=== PATIENT | female | born 1995 | race Caucasian/White ===

== ENCOUNTER 2016-12-18 20:20 | Emergency (ER) | payer SELFPAY ==
[~2016-12-18] VITALS: Ht 162.6 cm; Wt 60.0 kg
[2016-12-18 20:21] VITALS: BP 122/73; PULSE 89; RESP 16; TEMP 98.2; O2SAT 100
--- NOTE | 2016-12-18 20:51 | PD ---
Physical Exam Time Seen by Provider: 20:49 Narrative 21 y/o female with abnormal uterine bleeding. She has had vaginal bleeding for over 2 weeks, now feeling lightheaded and generally weak. vss Seen at triage desk. Awaiting bed placement. Data Data Last Documented VS Vital Signs Date Time Temp Pulse Resp B/P Pulse Ox O2 Delivery O2 Flow Rate FiO2 12/18/16 20:21 98.2 89 16 122/73 100 Room Air [facility] Medical Record Reviewed: Yes Supervised Visit with MAIRA: Gurpreet Mercer December 18, 2016 20:51
--- NOTE | 2016-12-18 23:08 | PD ---
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 Patient states that she has a history of dysmenorrhea, has been on control for approximately 9 years. She states that she's been off control for 1 month, states that it was no longer covered by her insurance and she could not afford $90 a month for the medication. She endorses soaking a menstrual pad every 1-2 hours. She also endorses intermittent lightheadedness. She denies chest pain, palpitations, syncope, shortness of breath, abdominal pain, nausea, vomiting, dysuria or back pain. She does not currently have a primary care provider. She's never been . PFSH Past Medical History ?: Not LMP: CURRENT Social History Tobacco Use: No Allergies-Medications (Allergen,Severity, Reaction): Coded Allergies: No Known Allergies (Unverified , 12/18/16) Reported Meds & Prescriptions Reported Meds & Active Scripts Active No Active Prescriptions or Reported Medications Review of Systems Except as stated in HPI: all other systems reviewed are Neg Physical Exam Narrative GENERAL: Well-nourished, well-developed female in no acute distress. SKIN: Focused skin assessment warm/dry. HEAD: Normocephalic. EYES: No scleral icterus. No injection or drainage. NECK: Supple, trachea midline. No JVD or lymphadenopathy. CARDIOVASCULAR: Regular rate and rhythm without murmurs, gallops, or rubs. 2+ DP and radial pulses bilaterally. RESPIRATORY: Breath sounds clear and equal bilaterally. No accessory muscle use. GASTROINTESTINAL: Abdomen soft, non-tender, nondistended. No suprapubic tenderness. Active bowel sounds. MUSCULOSKELETAL: No cyanosis, or edema. BACK: Nontender without obvious deformity. No CVA tenderness. Data Data Last Documented VS Vital Signs Date Time Temp Pulse Resp B/P Pulse Ox O2 Delivery O2 Flow Rate FiO2 12/18/16 23:16 18 12/18/16 20:21 98.2 89 122/73 100 Room Air Orders Complete Blood Count With Diff (12/18/16 23:44) Urinalysis - C+S If Indicated (12/18/16 23:44) Iv Access Insert/Monitor (12/18/16 23:44) Ed Urine Pregnancytest Poc (12/18/16 23:44) Sodium Chlor 0.9% 1000 Ml Inj (Ns 1000 M (12/18/16 23:45) Labs Laboratory Tests Test 12/18/16 23:53 White Blood Count 8.9 TH/MM3 Red Blood Count 3.18 MIL/MM3 Hemoglobin 8.8 GM/DL Hematocrit 26.2 % Mean Corpuscular Volume 82.3 FL Mean Corpuscular Hemoglobin 27.5 PG Mean Corpuscular Hemoglobin 33.5 % Concent Red Cell Distribution Width 15.2 % Platelet Count 364 TH/MM3 Mean Platelet Volume 8.8 FL Neutrophils (%) (Auto) 58.0 % Lymphocytes (%) (Auto) 31.7 % Monocytes (%) (Auto) 7.8 % Eosinophils (%) (Auto) 2.0 % Basophils (%) (Auto) 0.5 % Neutrophils # (Auto) 5.2 TH/MM3 Lymphocytes # (Auto) 2.8 TH/MM3 Monocytes # (Auto) 0.7 TH/MM3 Eosinophils # (Auto) 0.2 TH/MM3 Basophils # (Auto) 0.0 TH/MM3 CBC Comment DIFF FINAL Differential Comment Urine Color YELLOW Urine Turbidity HAZY Urine pH 8.0 Urine Specific [place] 1.021 Urine Protein 30 mg/dL Urine Glucose (UA) NEG mg/dL Urine Ketones NEG mg/dL Urine Occult Blood LARGE Urine Nitrite NEG Urine Bilirubin NEG Urine Urobilinogen LESS THAN 2.0 MG/DL Urine Leukocyte Esterase TRACE Urine RBC 65 /hpf Urine WBC 6 /hpf Urine Squamous Epithelial 13 /hpf Cells Urine Amorphous Sediment RARE Urine Mucus FEW /lpf Microscopic Urinalysis Comment CULT NOT INDICATED MDM Medical Decision Making Medical Screen Exam Complete: Yes Emergency Medical Condition: Yes Differential Diagnosis dysmenorrhea versus anemia versus UTI versus versus other Narrative Course 21-year-old female presents to the ED for evaluation of approximate 17 day history of heavy menstrual bleeding. Patient states that she has a history of dysmenorrhea, has been on control for approximately 9 years. She states that she's been off control for 1 month, states that it was no longer covered by her insurance and she could not afford $90 a month for the medication. She endorses soaking a menstrual pad every 1-2 hours. She also endorses intermittent lightheadedness. She denies chest pain, palpitations, syncope, shortness of breath, abdominal pain, nausea, vomiting, dysuria or back pain. She does not currently have a primary care provider. She's never been . Vitals reviewed. Physical exam reveals a nontoxic-appearing female in no acute distress. Chest clear to auscultation bilaterally. Abdomen soft, nontender. No suprapubic tenderness. No CVA tenderness. She is administered a liter of normal saline. CBC reveals hemoglobin of 8.8, otherwise unremarkable. No culture indicated of the UA. Bedside urine test negative. Patient does not meet requirements for transfusion or admission. Patient is instructed to follow up with the [facility] tomorrow for further evaluation, return for worsening of symptoms. Patient and mother indicated understanding of instructions and are agreeable to the care plan. Patient is stable and discharged home. Diagnosis Primary Impression: Dysfunctional uterine bleeding Referrals: [facility] [employer] Patient Instructions: Dysfunctional Uterine Bleeding (ED), General Instructions Additional Instructions: Rest, hydrate. Follow-up with the [facility] as discussed. Return to the ED for worsening symptoms or any urgent or emergent medical condition. Scripts No Active Prescriptions or Reported Meds Disposition: 01 DISCHARGE HOME Condition: Stable Erlinda Owen December 18, 2016 23:07
[2016-12-18] MEDS ORDERED: SODIUM CHLOR 0.9% 1000 ML INJ 1,000 ML IV ONE (23:45)
[2016-12-19 00:02] LABS: AUTOMATED NEUTROPHIL # 5.2 TH/MM3 (1.8-7.7); BASOPHIL % 0.5 % (0.0-2.0); EOSINOPHIL # 0.2 TH/MM3 (0-0.4); HEMATOCRIT 26.2 % (35.0-46.0); HEMO FLAGS DIFF FINAL; LYMPH % 31.7 % (9.0-44.0); LYMPHOCYTE # 2.8 TH/MM3 (1.0-4.8); MEAN CELL VOLUME 82.3 FL (80.0-100.0); MEAN CORPUSCULAR HEMOGLOBIN 27.5 PG (27.0-34.0); MEAN CORPUSCULAR HGB CONC 33.5 % (32.0-36.0); MONO % 7.8 % (0.0-8.0); PLATELET COUNT 364 TH/MM3 (150-450); RED BLOOD COUNT 3.18 MIL/MM3 (4.00-5.30); RED CELL DISTRIBUTION WIDTH 15.2 % (11.6-17.2); WHITE BLOOD COUNT 8.9 TH/MM3 (4.0-11.0)
[2016-12-19 00:07] LABS: BLOOD, URINE LARGE (NEG); COMMENT (UR) CULT NOT INDICATED; CULTURE IF INDICATED CULT NOT INDICATED; GLUCOSE,URINE NEG (NEG); KETONE, URINE NEG (NEG); MUCUS URINE FEW /lpf (OCC); NITRITE,URINE NEG (NEG); SQUAMOUS EPITHELIAL CELL URINE 13 /hpf (0-5); URINE COLOR YELLOW (YELLW/STRAW)
[2016-12-19 01:46] VITALS: BP 96/56; PULSE 69; RESP 18; TEMP 98.1; O2SAT 100
== END 2016-12-19 01:38 | disposition home or self-care (01) ==
LOC: NEPD 20:20
DX: N93.8 Other specified abnormal uterine and vaginal bleeding (principal); R42 Dizziness and giddiness
CPT/HCPCS: 81001; 84703; 85025; 99284; J7030

== ENCOUNTER 2017-08-07 01:37 | Emergency (ER) | payer OTHER ==
[~2017-08-07] VITALS: Ht 162.6 cm; Wt 59.0 kg
[2017-08-07 01:38] VITALS: BP 122/83; PULSE 89; RESP 16; TEMP 97.9; O2SAT 99
[2017-08-07] MEDS ORDERED: SODIUM CHLOR 0.9% 1000 ML INJ 1,000 ML IV ONE (02:19)
[2017-08-07] MEDS ORDERED: ONDANSETRON HCL 4 MG/2 ML VIAL IV ONE (02:30)
[2017-08-07 03:04] LABS: AUTOMATED NEUTROPHIL # 5.2 TH/MM3 (1.8-7.7); BASOPHIL # 0.1 TH/MM3 (0-0.2); BASOPHIL % 0.6 % (0.0-2.0); EOSINOPHIL # 0.2 TH/MM3 (0-0.4); EOSINOPHIL % 2.5 % (0.0-4.0); HEMATOCRIT 30.7 % (35.0-46.0); HEMOGLOBIN 9.8 GM/DL (11.6-15.3); LYMPH % 33.3 % (9.0-44.0); LYMPHOCYTE # 3.1 TH/MM3 (1.0-4.8); MEAN CELL VOLUME 75.1 FL (80.0-100.0); MEAN CORPUSCULAR HEMOGLOBIN 23.9 PG (27.0-34.0); MEAN CORPUSCULAR HGB CONC 31.8 % (32.0-36.0); MEAN PLATELET VOLUME 8.5 FL (7.0-11.0); MONO % 8.4 % (0.0-8.0); MONOCYTE # 0.8 TH/MM3 (0-0.9); NEUT % 55.2 % (16.0-70.0); PLATELET COUNT 318 TH/MM3 (150-450); RED BLOOD COUNT 4.09 MIL/MM3 (4.00-5.30); RED CELL DISTRIBUTION WIDTH 17.7 % (11.6-17.2); WHITE BLOOD COUNT 9.5 TH/MM3 (4.0-11.0)
--- NOTE | 2017-08-07 03:05 | PD ---
HPI Chief Complaint: GI Complaint Time Seen by Provider: 02:18 Travel History International Travel<30 days: No Contact w/Intl Traveler<30days: No Traveled to known affect area: No History of Present Illness HPI The patient is a 22 year old female who presents to the [facility] emergency department with a history of 2 separate complaints, the first complaint is that over the last 24 hours she's had nausea, vomiting, and diarrhea. She reports that the vomiting is occurred approximately 7 times in the last 24 hours. She reports that she's had diarrhea approximately one time in the last 24 hours. She denies having any blood in her emesis or blood in her stool. Her second concern today is having intermittent vaginal discharge. She reports that this is been ongoing for the last few months. She has tried using [id number] seven-day yeast treatments without improvement. She reports that she is sexually active, however she has been with the same partner. She does not use condoms. Otherwise on review of systems, she denies having any known recent fevers, cough, congestion, neck pain, chest pain, shortness of breath, abdominal pain, urinary symptoms, or neurologic symptoms. LMP: Beginning of May. She reports having a history of irregular cycles. [facility] Past Medical History Narrative Medical The patient's past medical history is significant for irregular menstrual cycles. Medical History: Denies Significant Hx Hiatal Hernia: Yes ?: Not : 0 Past Surgical History Abdominal Surgery: Yes (HERNIA ) Social History Alcohol Use: Yes Tobacco Use: No Substance Use: No Allergies-Medications (Allergen,Severity, Reaction): Coded Allergies: No Known Allergies (Unverified Adverse Reaction, Unknown, 08/07/17) Reported Meds & Prescriptions Reported Meds & Active Scripts Active Diflucan (Fluconazole) 150 Mg Tab 150 Mg PO ONCE Flagyl (Metronidazole) 500 Mg Tab 500 Mg PO BID Review of Systems Except as stated in HPI: all other systems reviewed are Neg General / Constitutional: No: Fever Eyes: No: Visual changes HENT: No: Headaches Cardiovascular: No: Chest Pain or Discomfort Respiratory: No: Shortness of Breath Gastrointestinal: Positive: Nausea, Vomiting, Diarrhea, Changes in Bowel Habits , No: Abdominal Pain, Hematemesis, Hematochezia, Indigestion, Loss of Appetite Genitourinary: Positive: Pelvic Pain, Discharge, No: Dysuria Musculoskeletal: No: Pain Skin: No Rash Neurologic: No: Weakness Psychiatric: No: Depression Endocrine: No: Polydipsia Hematologic/Lymphatic: No: Easy Bruising Physical Exam Narrative General: The patient is [-]. Head and Neck exam: Head is normocephalic atraumatic. Eyes: EOMI, pupils are equal round and reactive to light. Nose: Midline septum with pink mucous membranes Mouth: Dentition unremarkable. Moist mucus membranes. Posterior oropharynx is not erythematous. No tonsillar hypertrophy. Uvula midline. Airway patent. Neck: No palpable lymphadenopathy. No nuchal rigidity. No thyromegaly. Cardiovascular: Regular rate and rhythm without murmurs, gallops, or rubs. No pulse deficit to the extremities. Lungs: Clear to auscultation bilaterally. No wheezes, rhonchi, or rales. Abdomen: Soft, without tenderness to palpation in all 4 quadrants of the abdomen. No guarding, rebound, or rigidity. Normal bowel sounds are audible. No tenderness on palpation of McBurney's point. Extremities: No clubbing, cyanosis, or edema. 2+ pulses in all 4 extremities. Back: No costovertebral angle tenderness to palpation. Neurologic Exam: Grossly nonfocal. Skin Exam: No rash noted. Intact skin that is warm and dry. Gynecologic exam: The patient was placed in the dorsal lithotomy position. Her external genitalia were examined. She had no evidence of rash or lesions. The speculum was placed into her vagina and the cervix was identified. She had a thick clumpy white discharge. No cervical friability. On Bimanual exam: she has no cervical motion tenderness. No adnexal tenderness or prominence noted on palpation. No uterine tenderness or enlargement noted on palpation. Data Data Last Documented VS Vital Signs Date Time Temp Pulse Resp B/P (MAP) Pulse Ox O2 Delivery O2 Flow Rate FiO2 08/07/17 05:46 08/07/17 05:00 74 18 100 Room Air 08/07/17 01:38 97.9 Orders Orders Complete Blood Count With Diff (08/07/17 02:19) Comprehensive Metabolic Panel (08/07/17 02:19) Gc And Chlamydia Pcr (08/07/17 02:19) Wet Prep Profile (08/07/17 02:19) Urinalysis - C+S If Indicated (08/07/17 02:19) Iv Access Insert/Monitor (08/07/17 02:19) Ecg Monitoring (08/07/17 02:19) Sodium Chlor 0.9% 1000 Ml Inj (Ns 1000 M (08/07/17 02:19) Ed Urine Pregnancytest Poc (08/07/17 02:19) Lipase (08/07/17 02:19) Ondansetron Inj (Zofran Inj) (08/07/17 02:30) Labs Laboratory Tests Test 08/07/17 02:47 08/07/17 03:10 White Blood Count 9.5 TH/MM3 Red Blood Count 4.09 MIL/MM3 Hemoglobin 9.8 GM/DL Hematocrit 30.7 % Mean Corpuscular Volume 75.1 FL Mean Corpuscular Hemoglobin 23.9 PG Mean Corpuscular Hemoglobin Concent 31.8 % Red Cell Distribution Width 17.7 % Platelet Count 318 TH/MM3 Mean Platelet Volume 8.5 FL Neutrophils (%) (Auto) 55.2 % Lymphocytes (%) (Auto) 33.3 % Monocytes (%) (Auto) 8.4 % Eosinophils (%) (Auto) 2.5 % Basophils (%) (Auto) 0.6 % Neutrophils # (Auto) 5.2 TH/MM3 Lymphocytes # (Auto) 3.1 TH/MM3 Monocytes # (Auto) 0.8 TH/MM3 Eosinophils # (Auto) 0.2 TH/MM3 Basophils # (Auto) 0.1 TH/MM3 CBC Comment DIFF FINAL Differential Comment Urine Color YELLOW Urine Turbidity CLOUDY Urine pH 8.0 Urine Specific [place] 1.023 Urine Protein TRACE mg/dL Urine Glucose (UA) NEG mg/dL Urine Ketones TRACE mg/dL Urine Occult Blood NEG Urine Nitrite NEG Urine Bilirubin NEG Urine Urobilinogen 2.0 MG/DL Urine Leukocyte Esterase MOD Urine RBC 2 /hpf Urine WBC 7 /hpf Urine Squamous Epithelial Cells 20 /hpf Urine Transitional Epithelial Cells <1 /hpf Urine Amorphous Sediment RARE Urine Bacteria RARE /hpf Urine Hyaline Casts 2 /lpf Urine Mucus MANY /lpf Microscopic Urinalysis Comment CULT NOT INDICATED Blood Urea Nitrogen 7 MG/DL Creatinine 0.79 MG/DL Random Glucose 95 MG/DL Total Protein 7.5 GM/DL Albumin 4.0 GM/DL Calcium Level 8.8 MG/DL Alkaline Phosphatase 51 U/L Aspartate Amino Transf (AST/SGOT) 9 U/L Alanine Aminotransferase (ALT/SGPT) 19 U/L Total Bilirubin 0.3 MG/DL Sodium Level 140 MEQ/L Potassium Level 3.3 MEQ/L Chloride Level 105 MEQ/L Carbon Dioxide Level 28.0 MEQ/L Anion Gap 7 MEQ/L Estimat Glomerular Filtration Rate 92 ML/MIN Lipase 111 U/L Clue Cells (Wet Prep) PRESENT Vaginal Trichomonas (Wet Prep) NONE SEEN Vaginal Yeast (Wet Prep) NONE SEEN Chlamydia trachomatis DNA (PCR) NOT DETECTED Neisseria gonorrhoeae DNA (PCR) NOT DETECTED MDM Medical Decision Making Medical Screen Exam Complete: Yes Emergency Medical Condition: Yes Medical Record Reviewed: Yes Differential Diagnosis #1 regarding vaginal discharge yeast infection, versus trichomoniasis, versus gonorrhea, versus chlamydia, versus bacterial vaginosis #2 regarding nausea, vomiting, diarrhea: Viral versus bacterial gastroenteritis Narrative Course During the course of the patients emergency department visit, the patients history, examination, and differential diagnosis were reviewed with the patient. The patient was placed on a silk soaker with oximetry and frequent blood pressure monitoring. The patient had IV access obtained and blood work sent for analysis. A [id number] test is negative. The patient was initially provided normal saline 1 L IV fluid bolus, Zofran 4 mg IV. The patients laboratory studies were reviewed and remarkable for a white count of 9.5, hemoglobin 9.8, platelets 318 with 8.4 monocytes, her wet prep is positive for clue cells. CMP is unremarkable. The patient will be discharged home with a prescription for Flagyl for bacterial vaginosis and Diflucan. The patient is resting comfortably and feels better, is alert and in no distress. The patients results and examination findings were discussed with the patient. The repeat examination is unremarkable and benign. The history, exam, diagnostic testing, and current condition do not suggest any significant pathology to warrant further testing, continued ED treatment, admission, or surgical evaluation at this point. The vital signs have been stable. The patient does not have uncontrollable pain, intractable vomiting, or other significant symptoms. The patient's condition is stable and appropriate for discharge. The patient will pursue further outpatient evaluation with a primary care physician or other designated or consulting physician as indicated in the discharge instructions. The patient expressed understanding and was agreeable with this plan. Diagnosis Primary Impression: Dysfunctional uterine bleeding Additional Impression: Bacterial vaginosis Referrals: Rosalind Haile MD 1 week [facility] 1 week Patient Instructions: Bacterial Vaginosis (ED), Dysfunctional Uterine Bleeding (ED), General Instructions Med/Other Pt SpecificInfo: Prescription(s) given Scripts Fluconazole (Diflucan) 150 Mg Tab 150 MG PO ONCE for Infection, #1 TAB 0 Refills Prov: Janeth Mario MD 08/07/17 Metronidazole (Flagyl) 500 Mg Tab 500 MG PO BID for Infection, #14 TAB 0 Refills Prov: Janeth Mario MD 08/07/17 Disposition: 01 DISCHARGE HOME Condition: Stable Janeth Mario MD Aug 07, 2017 03:05
[2017-08-07 03:31] LABS: ALT (GPT) 19 U/L (10-53); AST (GOT) 9 U/L (15-37); BLOOD UREA NITROGEN 7 MG/DL (7-18); CALCIUM 8.8 MG/DL (8.5-10.1); CHLORIDE 105 MEQ/L (98-107); CREATININE 0.79 MG/DL (0.50-1.00); GLOMERULAR FILTRATION RATE 92 ML/MIN (>89); GLUCOSE,RANDOM 95 MG/DL (74-106); LIPASE 111 U/L (73-393); SODIUM (NA) 140 MEQ/L (136-145)
[2017-08-07 03:34] LABS: ALKALINE PHOSPHATASE 51 U/L (45-117); TOTAL BILIRUBIN ADULT 0.3 MG/DL (0.2-1.0); TOTAL PROTEIN 7.5 GM/DL (6.4-8.2)
[2017-08-07 03:41] LABS: AMORPHOUS SEDIMENT, URINE RARE; BACTERIA, URINE RARE /hpf; BILIRUBIN, URINE NEG (NEG); BLOOD, URINE NEG (NEG); GLUCOSE,URINE NEG (NEG); HYALINE CAST, URINE 2 /lpf (RARE); KETONE, URINE TRACE mg/dL (NEG); MUCUS URINE MANY /lpf (OCC); NITRITE,URINE NEG (NEG); SQUAMOUS EPITHELIAL CELL URINE 20 /hpf (0-5); TRANSITIONAL EPI CELLS, URINE <1 /hpf; URINE COLOR YELLOW (YELLW/STRAW); URINE LEUKOCYTE ESTERASE MOD (NEG)
[2017-08-07 05:00] VITALS: BP 119/71; PULSE 74; RESP 18; O2SAT 100
[2017-08-07] MEDS ORDERED: METR-1 PO (05:24)
[2017-08-07] MEDS ORDERED: DIFL150T PO (05:24)
== END 2017-08-07 05:47 | disposition home or self-care (01) ==
LOC: NEPC 01:37
DX: N93.8 Other specified abnormal uterine and vaginal bleeding (principal); B96.89 Other specified bacterial agents as the cause of diseases classified elsewhere; N76.0 Acute vaginitis; R11.2 Nausea with vomiting, unspecified; R19.7 Diarrhea, unspecified
CPT/HCPCS: 80053; 81001; 83690; 84703; 85025; 87210; 87491; 87591; 96361; 96374; 99284; J2405; J7030

== ENCOUNTER 2017-11-10 13:26 | Inpatient (IN) | payer SELFPAY ==
[~2017-11-10] VITALS: Ht 165.1 cm; Wt 52.0 kg
[~2017-11-10 13:26] MED LIST: DIFL150T PO; METR-1 PO
[2017-11-10 13:32] VITALS: BP 110/68; PULSE 79; RESP 18; TEMP 98.1; O2SAT 99
[2017-11-10] MEDS ORDERED: SODIUM CHLOR 0.9% 1000 ML INJ 1,000 ML IV ONE (13:37)
--- NOTE | 2017-11-10 13:58 | PD ---
HPI Chief Complaint: Seizure Time Seen by Provider: 13:36 Travel History International Travel<30 days: No Contact w/Intl Traveler<30days: No Traveled to known affect area: No History of Present Illness HPI 22-year-old female presents emergency department via [facility] after seizure that occurred just prior to arrival. 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 Unfortunately, unable to characterize this seizure activity, she does not know how long she was out. According to [facility], she was A+ O 1 upon initial evaluation. Patient became A+O 3 shortly after their arrival. EKG shows sinus arrhythmia with short pauses. Currently she complains about an 8/10 headache with associated nausea. Her headaches located in the frontal aspect of her forehead. Denies tongue biting or urinary incontinence. Patient does not remember the events of the actual seizure. Patient denies fever, chills, chest pain, shortness breath, abdominal pain, vomiting, diarrhea. She denies any preceding infections. States she last smoked marijuana 2 weeks ago. Denies any other illicit drug use. Says she does have a history of anemia and has not followed up with this. Denies chronic medical issues medication use. Since her last menstrual period was 2 weeks ago and lasted approximately 1 week with is unusual for her. States usually usually bleeds for entire month. Prior to this menstrual cycle she last had a period in June 2017. [facility] Past Medical History Hiatal Hernia: Yes ?: Not : 0 Past Surgical History Abdominal Surgery: Yes (HERNIA ) Social History Alcohol Use: Yes Tobacco Use: Yes (1 PACK A DAY ) Substance Use: No Allergies-Medications (Allergen,Severity, Reaction): Coded Allergies: No Known Allergies (Unverified Adverse Reaction, Unknown, 08/07/17) Reported Meds & Prescriptions Reported Meds & Active Scripts Active Review of Systems Except as stated in HPI: all other systems reviewed are Neg Physical Exam Narrative GENERAL: Well-developed, well-nourished in no apparent distress, anxious SKIN: Focused skin assessment warm/dry. HEAD: Atraumatic. Normocephalic. Skin intact EYES: Pupils equal and round. No scleral icterus. No injection or drainage. ENT: No nasal bleeding or discharge. Mucous membranes pink and moist. NECK: Trachea midline. No JVD. Mild TTP to upper cervical region without step- offs or deformities CARDIOVASCULAR: Regular rate and rhythm. No murmur appreciated. RESPIRATORY: No accessory muscle use. Clear to auscultation. Breath sounds equal bilaterally. GASTROINTESTINAL: Abdomen soft, non-tender, nondistended. No CVA tenderness MUSCULOSKELETAL: No obvious deformities. No clubbing. No cyanosis. No edema. NEUROLOGICAL: Awake and alert. Cranial nerves II through XII intact. Motor and sensory grossly within normal limits. Five out of 5 muscle strength in all muscle groups. Normal speech. PSYCHIATRIC: Appropriate mood and affect; insight and judgment normal. Data Data Last Documented VS Vital Signs Date Time Temp Pulse Resp B/P (MAP) Pulse Ox O2 Delivery O2 Flow Rate FiO2 11/10/17 16:13 122/78 (93) 127/78 (94) 11/10/17 13:32 98.1 79 18 99 Orders Orders Complete Blood Count With Diff (11/10/17 13:37) Alcohol (Ethanol) (11/10/17 13:37) Drug Screen, Random Urine (11/10/17 13:37) Electrocardiogram (11/10/17 ) Blood Glucose (11/10/17 13:37) Ecg Monitoring (11/10/17 13:37) Iv Access Insert/Monitor (11/10/17 13:37) Oximetry (11/10/17 13:37) Comprehensive Metabolic Panel (11/10/17 13:37) Sodium Chlor 0.9% 1000 Ml Inj (Ns 1000 M (11/10/17 13:37) Urinalysis - C+S If Indicated (11/10/17 13:37) Lipase (11/10/17 13:37) Ct Brain W/O Iv Contrast(Rout) (11/10/17 ) Ct Cerv Spine W/O Contrast (11/10/17 ) Ondansetron Inj (Zofran Inj) (11/10/17 14:00) Acetaminophen (Tylenol) (11/10/17 14:00) Chest, Single Ap (11/10/17 ) Ed Urine Pregnancytest Poc (11/10/17 13:55) Orthostatic Vital Signs (11/10/17 13:57) Ketorolac Inj (Toradol Inj) (11/10/17 18:00) Admit Order (Ed Use Only) (11/10/17 18:05) Labs Laboratory Tests Test 11/10/17 14:08 11/10/17 15:43 White Blood Count 5.6 TH/MM3 Red Blood Count 4.14 MIL/MM3 Hemoglobin 11.6 GM/DL Hematocrit 32.9 % Mean Corpuscular Volume 79.6 FL Mean Corpuscular Hemoglobin 28.0 PG Mean Corpuscular Hemoglobin Concent 35.2 % Red Cell Distribution Width 20.6 % Platelet Count 274 TH/MM3 Mean Platelet Volume 9.4 FL Neutrophils (%) (Auto) 66.2 % Lymphocytes (%) (Auto) 27.7 % Monocytes (%) (Auto) 5.2 % Eosinophils (%) (Auto) 0.4 % Basophils (%) (Auto) 0.5 % Neutrophils # (Auto) 3.7 TH/MM3 Lymphocytes # (Auto) 1.6 TH/MM3 Monocytes # (Auto) 0.3 TH/MM3 Eosinophils # (Auto) 0.0 TH/MM3 Basophils # (Auto) 0.0 TH/MM3 CBC Comment DIFF FINAL Differential Comment Blood Urea Nitrogen 6 MG/DL Creatinine 0.78 MG/DL Random Glucose 97 MG/DL Total Protein 7.9 GM/DL Albumin 4.1 GM/DL Calcium Level 8.9 MG/DL Alkaline Phosphatase 39 U/L Aspartate Amino Transf (AST/SGOT) 12 U/L Alanine Aminotransferase (ALT/SGPT) 19 U/L Total Bilirubin 0.4 MG/DL Sodium Level 140 MEQ/L Potassium Level 3.7 MEQ/L Chloride Level 106 MEQ/L Carbon Dioxide Level 24.6 MEQ/L Anion Gap 9 MEQ/L Estimat Glomerular Filtration Rate 93 ML/MIN Magnesium Level 1.9 MG/DL Lipase 121 U/L Thyroid Stimulating Hormone 3rd Gen 0.755 uIU/ML Ethyl Alcohol Level LESS THAN 3 MG/DL Urine Color LIGHT-YELLOW Urine Turbidity CLEAR Urine pH 6.5 Urine Specific [place] 1.004 Urine Protein NEG mg/dL Urine Glucose (UA) NEG mg/dL Urine Ketones 10 mg/dL Urine Occult Blood NEG Urine Nitrite NEG Urine Bilirubin NEG Urine Urobilinogen LESS THAN 2.0 MG/DL Urine Leukocyte Esterase NEG Urine WBC LESS THAN 1 /hpf Urine Squamous Epithelial Cells 2 /hpf Microscopic Urinalysis Comment CULT NOT INDICATED Urine Opiates Screen NEG Urine Barbiturates Screen NEG Urine Amphetamines Screen NEG Urine Benzodiazepines Screen NEG Urine Cocaine Screen NEG Urine Cannabinoids Screen POS MDM Medical Decision Making Medical Screen Exam Complete: Yes Emergency Medical Condition: Yes Differential Diagnosis New onset seizure disorder, syncopal episode, intoxication, substance abuse Narrative Course 22-year-old female presents emerged from [facility] after an apparent seizure that occurred just prior to arrival. [facility] states that she had a witnessed seizure just prior to arrival. EKG shows sinus bradycardia at rate 57 without STEMI changes. Sinus arrhythmia. CT head and neck without acute process. Labs are stable. Orthostatics negative [id number] negative. Patient given Tylenol and Toradol for her headache. 1 L normal saline IV fluids administered. Patient will be admitted for new onset seizure evaluation. I spoke with the resident, Dr. Beck who accepted the patient. UDS pending as of admission. Diagnosis Primary Impression: Seizure Admitting Information Admitting Physician Requests: Admit Scripts Ibuprofen (Ibuprofen) 600 Mg Tab 600 MG PO Q6H Y for pain 1-10, #20 TAB Prov: Breanna Beck MD 11/12/17 Condition: Stable Zee Bautista Nov 10, 2017 13:58
[2017-11-10] MEDS ORDERED: ONDANSETRON HCL 4 MG/2 ML VIAL IV PUSH ONE (14:00)
[2017-11-10] MEDS ORDERED: ACETAMINOPHEN 500 MG CPLT PO ONE (14:00)
[2017-11-10 15:01] LABS: AUTOMATED NEUTROPHIL # 3.7 TH/MM3 (1.8-7.7); BASOPHIL % 0.5 % (0.0-2.0); EOSINOPHIL % 0.4 % (0.0-4.0); HEMATOCRIT 32.9 % (35.0-46.0); HEMOGLOBIN 11.6 GM/DL (11.6-15.3); LYMPH % 27.7 % (9.0-44.0); LYMPHOCYTE # 1.6 TH/MM3 (1.0-4.8); MEAN CELL VOLUME 79.6 FL (80.0-100.0); MEAN CORPUSCULAR HGB CONC 35.2 % (32.0-36.0); MEAN PLATELET VOLUME 9.4 FL (7.0-11.0); MONO % 5.2 % (0.0-8.0); MONOCYTE # 0.3 TH/MM3 (0-0.9); NEUT % 66.2 % (16.0-70.0); PLATELET COUNT 274 TH/MM3 (150-450); RED BLOOD COUNT 4.14 MIL/MM3 (4.00-5.30); RED CELL DISTRIBUTION WIDTH 20.6 % (11.6-17.2); WHITE BLOOD COUNT 5.6 TH/MM3 (4.0-11.0)
[2017-11-10 15:25] LABS: ALBUMIN 4.1 GM/DL (3.4-5.0); ALT (GPT) 19 U/L (10-53); AST (GOT) 12 U/L (15-37); BICARBONATE 24.6 MEQ/L (21.0-32.0); BLOOD UREA NITROGEN 6 MG/DL (7-18); CALCIUM 8.9 MG/DL (8.5-10.1); CHLORIDE 106 MEQ/L (98-107); CREATININE 0.78 MG/DL (0.50-1.00); GLOMERULAR FILTRATION RATE 93 ML/MIN (>89); GLUCOSE,RANDOM 97 MG/DL (74-106); SODIUM (NA) 140 MEQ/L (136-145)
[2017-11-10 15:27] LABS: ALKALINE PHOSPHATASE 39 U/L (45-117); TOTAL BILIRUBIN ADULT 0.4 MG/DL (0.2-1.0); TOTAL PROTEIN 7.9 GM/DL (6.4-8.2)
--- NOTE | 2017-11-10 15:47 | RADRPT ---
EXAM DATE/TIME: 11/10/2017 14:52 [place] COMPARISON: No previous studies available for comparison. INDICATIONS : Syncope after seizure. MEDICAL HISTORY : None. SURGICAL HISTORY : None. ENCOUNTER: Initial ACUITY: 1 day PAIN SCORE: 0/10 LOCATION: Bilateral chest FINDINGS: A single view of the chest demonstrates the lungs to be symmetrically aerated without evidence of mas s, infiltrate or effusion. The cardiomediastinal contours are unremarkable. Osseous structures are intact. CONCLUSION: No acute disease. Peter Vu MD on November 10, 2017 at 15:44 Board Certified Radiologist. This report was verified electronically.
[2017-11-10 16:13] VITALS: BP_SYST 122; BP_SYST 127; BP_DIAS 78
[2017-11-10 16:24] LABS: BILIRUBIN, URINE NEG (NEG); BLOOD, URINE NEG (NEG); GLUCOSE,URINE NEG (NEG); KETONE, URINE 10 mg/dL (NEG); NITRITE,URINE NEG (NEG); PH, URINE 6.5 (5.0-8.5); SQUAMOUS EPITHELIAL CELL URINE 2 /hpf (0-5); URINE COLOR LIGHT-YELLOW (YELLW/STRAW); URINE LEUKOCYTE ESTERASE NEG (NEG)
--- NOTE | 2017-11-10 17:22 | RADRPT ---
EXAM DATE/TIME: 11/10/2017 15:45 [facility] COMPARISON: No previous studies available for comparison. INDICATIONS : Witnessed seizure. RADIATION DOSE: 28.02 CTDIvol (mGy) MEDICAL HISTORY : None SURGICAL HISTORY : None. ENCOUNTER: Initial ACUITY: 1 day PAIN SCALE: 5/10 LOCATION: Bilateral distal TECHNIQUE: Multiple contiguous axial images were obtained of the head. Using automated exposure control and adj ustment of the mA and/or kV according to patient size, radiation dose was kept as low as reasonably a chievable to obtain optimal diagnostic quality images. DICOM format image data is available electro nically for review and comparison. FINDINGS: CEREBRUM: The ventricles are normal for age. No evidence of midline shift, mass lesion, hemorrhage or acute in farction. No extra-axial fluid collections are seen. POSTERIOR FOSSA: The cerebellum and brainstem are intact. The 4th ventricle is midline. The cerebellopontine angle i s unremarkable. EXTRACRANIAL: The visualized portion of the orbits is intact. SKULL: The calvaria is intact. No evidence of skull fracture. CONCLUSION: Normal examination. Peter Vu MD on November 10, 2017 at 17:19 Board Certified Radiologist. This report was verified electronically.
--- NOTE | 2017-11-10 17:23 | RADRPT ---
EXAM DATE/TIME: 11/10/2017 15:45 [facility] COMPARISON: No previous studies available for comparison. INDICATIONS : Witnessed seizure. RADIATION DOSE: 8.59 CTDIvol (mGy) MEDICAL HISTORY : None SURGICAL HISTORY : None. ENCOUNTER: Initial ACUITY: 1 day PAIN SCALE: 3/10 LOCATION: Bilateral neck TECHNIQUE: Volumetric scanning of the cervical spine was performed. Multiplanar reconstructions in the sagittal, coronal and oblique axial planes were performed. Using automated exposure control and adjustment o f the mA and/or kV according to patient size, radiation dose was kept as low as reasonably achievable to obtain optimal diagnostic quality images. DICOM format image data is available electronically f or review and comparison. FINDINGS: VERTEBRAE: Normal vertebral body height. ALIGNMENT: No evidence of subluxation. There is straightening to minimal reversal of the normal C-spine lordosis . C2-C3: The bony spinal canal is normal in size. No evidence of disc bulge or herniation. The neural forami na are bilaterally patent. C3-C4: The bony spinal canal is normal in size. No evidence of disc bulge or herniation. The neural forami na are bilaterally patent. C4-C5: The bony spinal canal is normal in size. No evidence of disc bulge or herniation. The neural forami na are bilaterally patent. C5-C6: The bony spinal canal is normal in size. No evidence of disc bulge or herniation. The neural forami na are bilaterally patent. C6-C7: The bony spinal canal is normal in size. No evidence of disc bulge or herniation. The neural forami na are bilaterally patent. C7-T1: The bony spinal canal is normal in size. No evidence of disc bulge or herniation. The neural forami na are bilaterally patent. CONCLUSION: No acute bony injury seen. Peter Vu MD on November 10, 2017 at 17:19 Board Certified Radiologist. This report was verified electronically.
[2017-11-10] MEDS ORDERED: KETOROLAC TROMETHAMINE 60 MG/2 ML (IM) VIAL IM ONE (18:00)
[2017-11-10] MEDS ORDERED: SODIUM CHLORIDE 0.9% FLUSH 10 ML FLUSH IV FLUSH PRN (18:15)
[2017-11-10] MEDS ORDERED: ONDANSETRON HCL 4 MG/2 ML VIAL IV PUSH PRN (18:15)
[2017-11-10] MEDS ORDERED: LORazepam 2 MG/ML VIAL IV PUSH PRN (18:15)
--- NOTE | 2017-11-10 18:23 | HHI.HP ---
HPI Service Family Medicine Primary Care Physician No Primary Care Physician Admission Diagnosis new onset siezure Diagnoses: International Travel<30 Days: No Contact w/Intl Traveler<30days: No Known Affected Area: No History of Present Illness 22 yo F presents emergency department via [facility] after seizure that occurred just prior to arrival. 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 She states she woke up this morning with headache, nausea, "not feeling right." Patient does not remember the events of the actual seizure and is unable to characterize this seizure activity, she does not know how long she was out. She was told by coworkers that her eyes rolled back in her head and she had full body jerking. According to [facility], she was A+O 1 upon initial evaluation. Patient became A+O 3 shortly after their arrival. Initially she complained about an 8/10 headache with associated nausea, but this improved with Toradol, Zofran and Tylenol in ED. Her headaches located in the frontal aspect of her forehead. Denies urinary incontinence. Patient denies current fever, chills, chest pain, shortness breath, abdominal pain, vomiting, diarrhea. She denies any preceding infections that she knows of. States she last smoked marijuana 2 weeks ago. Denies any other illicit drug use. Says she does have a history of anemia and has not followed up with this. Denies chronic medical issues medication use. Since her last menstrual period was 2 weeks ago and lasted approximately 1 week with is unusual for her. States usually usually bleeds for entire month. Prior to this menstrual cycle she last had a period in June 2017. Review of Systems Constitutional: DENIES: Fever, Chills, Dizziness Endocrine: COMPLAINS OF: Abnorml menstrual pattern Eyes: DENIES: Blurred vision, Double Vision Ears, nose, mouth, throat: DENIES: Throat pain, Running Nose Respiratory: DENIES: Cough, Shortness of breath Cardiovascular: DENIES: Chest pain, Palpitations Gastrointestinal: DENIES: Abdominal pain, Black stools, Bloody stools, Constipation, Diarrhea, Nausea, Vomiting Genitourinary: COMPLAINS OF: Dysuria (2 days ago happened once), DENIES: Hematuria Musculoskeletal: DENIES: Joint Swelling Integumentary: DENIES: Rash Hematologic/lymphatic: DENIES: Lymphadenopathy Neurologic: COMPLAINS OF: Headache (States she hit her head when she had the seizure), Seizures, DENIES: Localized weakness, Speech Problems Psychiatric: COMPLAINS OF: Confusion (immediately after the seizuer) Past Family Social History Past Medical History Anemia Past Surgical History hernia repair in infancy Allergies: Coded Allergies: No Known Allergies (Unverified Adverse Reaction, Unknown, 08/07/17) Family History Seizure disorder in maternal cousin Social History Lives with boyfriend ([facility] [phone]) Mom is tigist Arellano ([phone]) Uncle is Swapnil Arellano ([phone]) Worked at a Currently Rarely alcohol 2 cigs per day Occasional marijuana use - 2 weeks ago was last use Physical Exam Vital Signs Vital Signs Date Time Temp Pulse Resp B/P (MAP) Pulse Ox O2 Delivery O2 Flow Rate FiO2 11/10/17 16:13 122/78 (93) 127/78 (94) 11/10/17 13:32 98.1 79 18 110/68 (82) 99 Physical Exam GENERAL: This is a well-nourished, well-developed patient, in no apparent distress. Conversant and answering questions appropriately during interview. SKIN: No rashes, ecchymoses or lesions. Cool and dry. HEAD: Atraumatic. Normocephalic. No temporal or scalp tenderness. EYES: Pupils equal round and reactive. Extraocular motions intact. No scleral icterus. No injection or drainage. ENT: Nose without bleeding, purulent drainage or septal hematoma. Throat without erythema, tonsillar hypertrophy or exudate. Uvula midline. Airway patent. 1 cm shallow, non-bleeding wound on R side of tongue. Multiple shallow, non-bleeding wounds on inside of lower lip NECK: Trachea midline. No JVD or lymphadenopathy. Supple, nontender, no meningeal signs. CARDIOVASCULAR: Regular rate and rhythm without murmurs, gallops, or rubs. RESPIRATORY: Clear to auscultation. Breath sounds equal bilaterally. No wheezes , rales, or rhonchi. GASTROINTESTINAL: Abdomen soft, non-tender, nondistended. No hepato-splenomegaly , or palpable masses. No guarding. MUSCULOSKELETAL: Extremities without clubbing, cyanosis, or edema. No joint tenderness, effusion, or edema noted. No calf tenderness. Negative Homans sign bilaterally. NEUROLOGICAL: Awake and alert. Cranial nerves II through XII intact. Motor and sensory grossly within normal limits. Five out of 5 muscle strength in all muscle groups. Normal speech. Laboratory Laboratory Tests Test 11/10/17 14:08 11/10/17 15:43 White Blood Count 5.6 Red Blood Count 4.14 Hemoglobin 11.6 Hematocrit 32.9 Mean Corpuscular Volume 79.6 Mean Corpuscular Hemoglobin 28.0 Mean Corpuscular Hemoglobin Concent 35.2 Red Cell Distribution Width 20.6 Platelet Count 274 Mean Platelet Volume 9.4 Neutrophils (%) (Auto) 66.2 Lymphocytes (%) (Auto) 27.7 Monocytes (%) (Auto) 5.2 Eosinophils (%) (Auto) 0.4 Basophils (%) (Auto) 0.5 Neutrophils # (Auto) 3.7 Lymphocytes # (Auto) 1.6 Monocytes # (Auto) 0.3 Eosinophils # (Auto) 0.0 Basophils # (Auto) 0.0 CBC Comment DIFF FINAL Differential Comment Blood Urea Nitrogen 6 Creatinine 0.78 Random Glucose 97 Total Protein 7.9 Albumin 4.1 Calcium Level 8.9 Alkaline Phosphatase 39 Aspartate Amino Transf (AST/SGOT) 12 Alanine Aminotransferase (ALT/SGPT) 19 Total Bilirubin 0.4 Sodium Level 140 Potassium Level 3.7 Chloride Level 106 Carbon Dioxide Level 24.6 Anion Gap 9 Estimat Glomerular Filtration Rate 93 Lipase 121 Ethyl Alcohol Level LESS THAN 3 Urine Color LIGHT-YELLOW Urine Turbidity CLEAR Urine pH 6.5 Urine Specific [place] 1.004 Urine Protein NEG Urine Glucose (UA) NEG Urine Ketones 10 Urine Occult Blood NEG Urine Nitrite NEG Urine Bilirubin NEG Urine Urobilinogen LESS THAN 2.0 Urine Leukocyte Esterase NEG Urine WBC LESS THAN 1 Urine Squamous Epithelial Cells 2 Microscopic Urinalysis Comment CULT NOT INDICATED Result Diagram: 11/10/17 1408 11/10/17 1408 Caprini VTE Risk Assessment Caprini VTE Risk Assessment: No/Low Risk (score <= 1) Caprini Risk Assessment Model Point Value = 1 Point Value = 2 Point Value = 3 Point Value = 5 Age 41-60 Minor surgery BMI > 25 kg/m2 Swollen legs Varicose veins or History of unexplained or recurrent spontaneous Oral contraceptives or hormone replacement Sepsis (< 1 month) Serious lung disease, including pneumonia (< 1 month) Abnormal pulmonary function Acute myocardial infarction Congestive heart failure (< 1 month) History of inflammatory bowel disease Medical patient at bed rest Age 61-74 Arthroscopic surgery Major open surgery (> 45 min) Laparoscopic surgery (> 45 min) Malignancy Confined to bed (> 72 hours) Immobilizing plaster cast Central venous access Age >= 75 History of VTE Family history of VTE Factor V Leiden Prothrombin [id number] Lupus anticoagulant Anticardiolipin antibodies Elevated serum homocysteine Heparin-induced thrombocytopenia Other congenital or acquired thrombophilia Stroke (< 1 month) Elective arthroplasty Hip, pelvis, or leg fracture Acute spinal cord injury (< 1 month) Prophylaxis Regimen Total Risk Factor Score Risk Level Prophylaxis Regimen 0-1 Low Early ambulation 2 Moderate Order ONE of the following: *Sequential Compression Device (SCD) *Heparin 5000 units SQ BID 3-4 Higher Order ONE of the following medications: *Heparin 5000 units SQ TID *Enoxaparin/Lovenox 40 mg SQ daily (WT < 150 kg, CrCl > 30 mL/min) *Enoxaparin/Lovenox 30 mg SQ daily (WT < 150 kg, CrCl > 10-29 mL/min) *Enoxaparin/Lovenox 30 mg SQ BID (WT < 150 kg, CrCl > 30 mL/min) AND/OR *Sequential Compression Device (SCD) 5 or more Highest Order ONE of the following medications: *Heparin 5000 units SQ TID (Preferred with Epidurals) *Enoxaparin/Lovenox 40 mg SQ daily (WT < 150 kg, CrCl > 30 mL/min) *Enoxaparin/Lovenox 30 mg SQ daily (WT < 150 kg, CrCl > 10-29 mL/min) *Enoxaparin/Lovenox 30 mg SQ BID (WT < 150 kg, CrCl > 30 mL/min) AND *Sequential Compression Device (SCD) Assessment and Plan Assessment and Plan 22 yo F with PMH of anemia presented to ED following first time seizure. She did hit her head after a fall when the seizure started, CT scan negative for bleed/fracture. Consulting Neurology. EEG pending Code Status Full code Discussed Condition With Dr. Breanna Bekc Problem List: (1) Seizure ICD Codes: R56.9 - Unspecified convulsions Status: Acute Plan: First time seizure, witnessed tonic-clonic seizure. UDS + for marijuana - reported last use was 2 weeks ago No residual symptoms Imaging as below Electrolytes WNL EKG normal UA only showing 10 ketones Neurology consulted EEG pending Observation overnight Telemetry TSH pending (2) Head trauma ICD Codes: S09.90XA - Unspecified injury of head, initial encounter Plan: Reportedly hit head on vehicle immediately after the seizure started No lacerations noted Complaining of pain across forehead head CT negative for bleed/fracture Cervical spine CT negative Received Toradol, Tylenol in the ED Tylenol, Motrin PRN for pain Zofran as needed for nausea (3) FEN Plan: F: no IVF at this time E: replete as needed N: Regular diet No DVT prophylaxis Physician Certification 2 Midnight Certification Type: Admission for Inpatient Services Order for Inpatient Services The services are ordered in accordance with Medicare regulations or non- Medicare payer requirements, as applicable. In the case of services not specified as inpatient-only, they are appropriately provided as inpatient services in accordance with the 2-midnight benchmark. Estimated LOS (days): 1 days is the estimated time the patient will need to remain in the hospital, assuming treatment plan goals are met and no additional complications. Post-Hospital Plan: Home Vernon Nieves MD R1 Nov 10, 2017 18:23
[2017-11-10] MEDS ORDERED: MAGNESIUM HYDROXIDE SUSP 30 ML CUP PO PRN (19:00)
[2017-11-10] MEDS ORDERED: NALOXONE HCL 0.4 MG/ML AMP IV PUSH PRN (19:00)
[2017-11-10] MEDS ORDERED: SENNOSIDES 8.6 MG TAB PO PRN (19:00)
[2017-11-10] MEDS ORDERED: ACETAMINOPHEN 500 MG CPLT PO PRN (19:00)
[2017-11-10] MEDS ORDERED: LACTULOSE SYRUP 20 GM/30 ML CUP PO PRN (19:00)
[2017-11-10] MEDS ORDERED: BISACODYL 10 MG SUPP RECTAL PRN (19:00)
--- NOTE | 2017-11-10 19:21 | EKG ---
Date Performed: 11/10/2017 Time Performed: 14:12:08 PTAGE: 22 years EKG: SINUS BRADYCARDIA WITH SINUS ARRHYTHMIA POSSIBLE RIGHT VENTRICULAR CONDUCTION DELAY BORDERL INE ECG NO PREVIOUS TRACING DOCTOR: Hollie Mccormack Interpretating Date/Time 11/10/2017 19:18:15
[2017-11-10 19:30] VITALS: BP 112/56; PULSE 62; RESP 16; O2SAT 100
[2017-11-10 20:00] VITALS: BP_SYST 101; BP_SYST 102; BP_SYST 120; BP_DIAS 55; BP_DIAS 60; BP_DIAS 74; PULSE 65; RESP 18; TEMP 98.6; O2SAT 100
[2017-11-10] MEDS: DOCUSATE SODIUM 50 MG/SENNA 8.6 MG TAB PO SCH (21:00)
[2017-11-10 21:07] VITALS: PULSE 70
[2017-11-10] MEDS: IBUPROFEN 600 MG TAB PO PRN (21:42)
[2017-11-10] MEDS: SODIUM CHLORIDE 0.9% FLUSH 10 ML FLUSH IV FLUSH SCH (21:42)
[2017-11-11] VITALS (9 sets, daily range): BP systolic 99–120; BP diastolic 55–85; PULSE 52–75; RESP 18; TEMP 97.3–98.9; O2SAT 95–100
[2017-11-11 09:39] LABS: AUTOMATED NEUTROPHIL # 4.9 TH/MM3 (1.8-7.7); BASOPHIL % 0.6 % (0.0-2.0); EOSINOPHIL # 0.1 TH/MM3 (0-0.4); EOSINOPHIL % 1.3 % (0.0-4.0); HEMATOCRIT 33.5 % (35.0-46.0); HEMOGLOBIN 11.1 GM/DL (11.6-15.3); LYMPH % 24.7 % (9.0-44.0); LYMPHOCYTE # 1.9 TH/MM3 (1.0-4.8); MEAN CELL VOLUME 78.9 FL (80.0-100.0); MEAN PLATELET VOLUME 9.1 FL (7.0-11.0); MONO % 8.2 % (0.0-8.0); MONOCYTE # 0.6 TH/MM3 (0-0.9); NEUT % 65.2 % (16.0-70.0); PLATELET COUNT 295 TH/MM3 (150-450); RED BLOOD COUNT 4.25 MIL/MM3 (4.00-5.30); RED CELL DISTRIBUTION WIDTH 20.2 % (11.6-17.2); WHITE BLOOD COUNT 7.5 TH/MM3 (4.0-11.0)
[2017-11-11 10:06] LABS: BICARBONATE 22.1 MEQ/L (21.0-32.0); CALCIUM 8.8 MG/DL (8.5-10.1); CREATININE 0.73 MG/DL (0.50-1.00)
--- NOTE | 2017-11-11 13:35 | HHI.FPPN ---
Subjective Remarks No acute events overnight. Patient states she has generalized soreness all over but otherwise feels fine. States her headache has resolved. No CP, SOB, N/V. No seizure activity overnight (Vernon Nieves MD R1) Objective Vitals Vital Signs Date Time Temp Pulse Resp B/P (MAP) Pulse Ox O2 Delivery O2 Flow Rate FiO2 11/11/17 12:00 98.7 74 18 120/75 (90) 100 11/11/17 08:00 97.9 75 18 107/64 (78) 100 11/11/17 04:00 97.3 61 18 114/85 (95) 97 11/11/17 00:01 99 21 11/11/17 00:00 98.9 54 18 99/55 (70) 99 11/10/17 21:07 70 11/10/17 20:30 11/10/17 20:00 98.6 65 18 102/60 (74) 100 101/55 (70) 120/74 (89) 11/10/17 19:30 62 16 112/56 (74) 100 Room Air 11/10/17 16:13 122/78 (93) 127/78 (94) I/O 11/10/17 11/10/17 11/10/17 11/11/17 11/11/17 11/11/17 07:00 15:00 23:00 07:00 15:00 23:00 Intake Total 1000 ml Balance 1000 ml Intake IV Total 1000 ml # Voids 3 (Vernon Nieves MD R1) Result Diagram: 11/11/17 0823 11/11/17 0823 Objective Remarks GENERAL: This is a well-nourished, well-developed patient, in no apparent distress. Conversant and answering questions appropriately during interview. SKIN: No rashes, ecchymoses or lesions. Cool and dry. HEAD: Atraumatic. Normocephalic. No temporal or scalp tenderness. EYES: Pupils equal round and reactive. Extraocular motions intact. No scleral icterus. No injection or drainage. ENT: Nose without bleeding, purulent drainage or septal hematoma. Throat without erythema, tonsillar hypertrophy or exudate. Uvula midline. Airway patent. NECK: Trachea midline. No JVD or lymphadenopathy. Supple, nontender, no meningeal signs. CARDIOVASCULAR: Regular rate and rhythm without murmurs, gallops, or rubs. RESPIRATORY: Clear to auscultation. Breath sounds equal bilaterally. No wheezes , rales, or rhonchi. GASTROINTESTINAL: Abdomen soft, non-tender, nondistended. No hepato-splenomegaly , or palpable masses. No guarding. MUSCULOSKELETAL: Extremities without clubbing, cyanosis, or edema. No joint tenderness, effusion, or edema noted. No calf tenderness. Negative Homans sign bilaterally. NEUROLOGICAL: Awake and alert. Cranial nerves II through XII intact. Motor and sensory grossly within normal limits. Five out of 5 muscle strength in all muscle groups. Normal speech (Vernon Nieves MD R1) A/P Assessment and Plan 22 yo F with PMH of anemia presented to ED following first time seizure. She did hit her head after a fall when the seizure started, CT scan negative for bleed/fracture. Consulting Neurology. EEG pending Discharge Planning Discharge pending EEG findings, clearance from neurology (Vernon Nieves MD R1) Attending Attestation Round table detailed discussion regarding patients admission and hospital course was held this morning Dr Zarate, Dr Zenaida Beck, Dr Nieves and Dr Monson present during discussion EMR reviewedPatient seen and examined with team Agree with contents of above note See Orders (Yeison Mayorga MD) Problem List: (1) Seizure ICD Codes: R56.9 - Unspecified convulsions Status: Acute Plan: First time seizure, witnessed tonic-clonic seizure. UDS + for marijuana - reported last use was 2 weeks ago No residual symptoms Imaging as below Electrolytes WNL EKG normal UA only showing 10 ketones Neurology consulted EEG pending Observation overnight Telemetry TSH WNL (2) Head trauma ICD Codes: S09.90XA - Unspecified injury of head, initial encounter Plan: Reportedly hit head on vehicle immediately after the seizure started No lacerations noted Complaining of pain across forehead head CT negative for bleed/fracture Cervical spine CT negative Received Toradol, Tylenol in the ED Headache resolved on 11/11 Tylenol, Motrin PRN for pain Zofran as needed for nausea (3) FEN Plan: F: no IVF at this time E: replete as needed N: Regular diet No DVT prophylaxis (Vernon Nieves MD R1) Vernon Nieves MD R1 Nov 11, 2017 13:35 Yeison Mayorga MD Nov 11, 2017 20:29
--- NOTE | 2017-11-11 13:48 | MB ---
cc: Federico Guajardo MD DATE: 11/11/2017 HISTORY OF PRESENT ILLNESS: This is a 22-year-old seen in neurological consultation with seizure yesterday. She never had seizures before. 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 She evidently recalls none of this when she woke up, when the paramedics were questioning her, and she has some vague recollection of that. Apparently, she was confused, unable to answer simple questions and did not recognize her own name. Even on her way to the hospital, she may have called an aunt and has no recollection of that. She is now recalling everything that happened after she came to the hospital. NEUROLOGIC EXAM: Exam was normal except that there is mild evidence of tongue injury and she admits her tongue being sore. Reflexes were 2+. Ocular movements and visual august full. Boyfriend was by the bedside. The patient was in bed for the neurologic exam. ASSESSMENT: New onset seizure. She was not feeling good yesterday before the seizure and felt there was some headache and nausea. This was followed by the seizure. No prior history of seizure. One remote family member has had seizures in the past. There is no obvious reason for this. She is not a drinker. Denies any drug abuse. I am looking at her data. CT brain is negative. She is to have an MRI brain and EEG studies. We will reevaluate her after these. Will possibly be offered anticonvulsant medications. I should add the toxicology was positive for cannabinoids only. Thank you for asking us to assist in her care. Federico Guajardo MD [facility]/TL , 01:26 PM , 01:48 PM
[2017-11-11] MEDS ORDERED: GADODIAMIDE PF 287 MG/ML 10 ML VIAL (for RAD MRI) IVCONTRAST ONE (15:43)
--- NOTE | 2017-11-11 15:55 | RADRPT ---
EXAM DATE/TIME: 11/11/2017 15:25 [facility] COMPARISON: No previous studies available for comparison. INDICATIONS : Seizures. CONTRAST: 10 cc Omniscan (gadodiamide) IV MEDICAL HISTORY : None. SURGICAL HISTORY : None. ENCOUNTER: Initial ACUITY: 1 day PAIN SCORE: 3/10 LOCATION: cranial TECHNIQUE: Multiplanar, multisequence MRI of the brain was performed both prior to and following the administrat ion of paramagnetic contrast. FINDINGS: CEREBRUM: The ventricles are normal for age. No evidence of midline shift, mass lesion, hemorrhage or acute in farction. No extraaxial fluid collections are seen. The pituitary gland and suprasellar cistern are normal in configuration. WHITE MATTER: No significant signal abnormalities are seen in the white matter. POSTERIOR FOSSA: The cerebellum and brainstem are intact. The 4th ventricle is midline. The cerebellopontine angle is unremarkable. The cerebellar tonsils are normal in position. DIFFUSION IMAGING: No focal areas of restricted diffusion are seen. No evidence of acute infarction. EXTRACRANIAL: The visualized portions of the orbits and paranasal sinuses are unremarkable. POST-CONTRAST: No abnormal areas of parenchymal or dural enhancement. No evidence of blood-brain barrier breakdown. CONCLUSION: Normal examination. Peter Vu MD on November 11, 2017 at 15:52 Board Certified Radiologist. This report was verified electronically.
--- NOTE | 2017-11-11 18:14 | MG ---
cc: Federico Guajardo MD INDICATION: An EEG was obtained on this 22-year-old patient with history of a seizure. FINDINGS: The patient is described as awake and drowsy. This EEG shows low and mid amplitude 10 per second alpha rhythms posteriorly. There are beta rhythms frontally. In a few occasions, there is some burst of high-amplitude delta activity maximum anteriorly with some questionable associated sharp or spike discharge. Photic stimulation was unremarkable. The patient later on drowsy and there was widespread beta activity and some theta rhythms. INTERPRETATION: Mildly abnormal electroencephalogram because of occasional intermixed high amplitude delta activity with questionable associated sharp discharge. No obvious lateralizing features. This finding is possibly an epileptiform abnormality. Clinical correlation. Federico Guajardo MD [facility]/SB , 06:02 PM , 06:13 PM
[2017-11-11] MEDS: DOCUSATE SODIUM 50 MG/SENNA 8.6 MG TAB PO SCH (21:00)
[2017-11-11] MEDS: lamoTRIgine 25 MG TAB PO SCH (21:00)
[2017-11-11] MEDS: SODIUM CHLORIDE 0.9% FLUSH 10 ML FLUSH IV FLUSH SCH (21:39)
[2017-11-11] MEDS: IBUPROFEN 600 MG TAB PO PRN (21:39)
[2017-11-12] VITALS: BP 112/78; PULSE 67; RESP 18; TEMP 98; O2SAT 95
[2017-11-12 04:00] VITALS: BP 108/55; PULSE 61; RESP 18; TEMP 98.2; O2SAT 92
[2017-11-12 08:36] VITALS: BP 110/69; PULSE 68; RESP 18; TEMP 97.9; O2SAT 99
[2017-11-12] MEDS: lamoTRIgine 25 MG TAB PO SCH (09:00)
[2017-11-12] MEDS: DOCUSATE SODIUM 50 MG/SENNA 8.6 MG TAB PO SCH (09:00)
[2017-11-12] MEDS: SODIUM CHLORIDE 0.9% FLUSH 10 ML FLUSH IV FLUSH SCH (09:11)
--- NOTE | 2017-11-12 09:23 | HHI.FPPN ---
Subjective Remarks Patient was seen and examined this morning. She states she feels great and her pain is now gone in the head and left arm. She has not had any seizure activity since admission. She actually wants to go home and defer starting medications. The MRI which was normal was discussed with patient and the EEG report noting abnormal waves was discussed with patient as well. She understands that she may require medications but is preferring deferment at this time. Objective Vitals Vital Signs Date Time Temp Pulse Resp B/P (MAP) Pulse Ox O2 Delivery O2 Flow Rate FiO2 11/12/17 08:36 97.9 68 18 110/69 (83) 99 11/12/17 04:00 98.2 61 18 108/55 (72) 92 11/12/17 00:00 98.0 67 18 112/78 (89) 95 11/11/17 23:47 60 11/11/17 20:00 98.1 71 18 109/73 (85) 95 11/11/17 19:49 57 11/11/17 16:00 98.2 71 18 102/78 (86) 100 11/11/17 12:00 74 11/11/17 12:00 98.7 74 18 120/75 (90) 100 I/O 11/11/17 11/11/17 11/11/17 11/12/17 11/12/17 11/12/17 07:00 15:00 23:00 07:00 15:00 23:00 # Voids 3 2 Result Diagram: 11/11/17 0823 11/11/17 0823 Other Results EEG 11/11/2017: Mildly abnormal electroencephalogram because of occasional intermixed high amplitude delta activity with questionable associated sharp discharge. No obvious lateralizing features. This finding is possibly an epileptiform abnormality. Clinical correlation. Imaging Last Impressions Head CT 11/10/17 0000 Signed Impressions: Service Date/Time: Friday, November 10, 2017 15:45 - CONCLUSION: Normal examination. Peter Vu MD Chest X-Ray 11/10/17 0000 Signed Impressions: Service Date/Time: Friday, November 10, 2017 14:52 - CONCLUSION: No acute disease. Peter Vu MD Cervical Spine CT 11/10/17 0000 Signed Impressions: Service Date/Time: Friday, November 10, 2017 15:45 - CONCLUSION: No acute bony injury seen. Peter Vu MD Objective Remarks GEN: Well-developed, well-nourished patient. No acute distress. Resting comfortably in bed. SKIN: No rashes, ecchymoses or lesions. Warm and dry. CV: Regular rate and rhythm without obvious murmurs LUNGS: Clear to auscultation bilaterally. Normal respiratory effort. No wheezes , rales, rhonchi. GI: Soft, nondistended. Bowel sounds present. EXT: No edema. No calf tenderness. NEURO/PSYCH: Awake, alert. Appropriate insight and judgment. Normal speech. 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 Medications and IVs Inpatient Medications Acetaminophen (Tylenol) 500 mg Q6H PRN PO pain 1-10; Start 11/10/17 at 19:00 Bisacodyl (Dulcolax Supp) 10 mg DAILY PRN RECTAL SEVERE CONSITIPATION; Start at 19:00 Ibuprofen (Motrin) 600 mg Q6H PRN PO pain 1-10 Last administered on 11/11/17at 21:39; Start 11/10/17 at 19:00 Ketorolac Tromethamine (Toradol Inj) 60 mg ONCE ONCE IM Last administered on at 18:00; Start 11/10/17 at 18:00; Stop 11/10/17 at 18:01; Status DC Lactulose (Lactulose Liq) 30 ml DAILY PRN PO SEVERE CONSITIPATION; Start at 19:00 Lamotrigine (LaMICtal) 25 mg Q12HR PO ; Start 11/11/17 at 21:00 Lorazepam (Ativan Inj) 2 mg UNSCH PRN IV PUSH SEE LABEL COMMENTS; Start at 18:15 Magnesium Hydroxide (Milk Of Magnesia Liq) 30 ml Q12H PRN PO Mild constipation ; Start 11/10/17 at 19:00 Naloxone HCl (Narcan Inj) 0.4 mg UNSCH PRN IV PUSH SEE LABEL COMMENTS; Start at 19:00 Ondansetron HCl (Zofran Inj) 4 mg Q6H PRN IV PUSH NAUSEA OR VOMITING; Start at 18:15 Senna/Docusate Sodium (Jackie-Colace) 1 tab BID PO ; Start 3/24/18 at 21:00 Sennosides (Senokot) 17.2 mg Q12H PRN PO Moderate constipation; Start 11/10/17 at 19:00 Sodium Chloride (NS Flush) 2 ml BID IV FLUSH Last administered on 11/11/17at 21: 39; Start 11/10/17 at 21:00 Urinary Catheter: No Vascular Central Line Catheter: No A/P Assessment and Plan 22 yo F with PMH of anemia presented to ED following first time seizure. She did hit her head after a fall when the seizure started, CT scan negative for bleed/fracture. Neurology consulted. EEG showing possible epileptiform activity , MRI normal. No seizures since [id number] episode. Lamictal was ordered yesterday by neurology but patient has refused the medication at this time. She requests discharge today. She and her boyfriend are given seizure precaution discussion and handout and she is told that she has not to be able to drive for at least 6 months. She agrees with this and notes her boyfriend drives anyway. DC to home today Discharge Planning Discharge pending Neurology clearance. Update 9:40am: Dr. Calderón reviewed case, noted abnormal EEG. Discussed that patient did not want to take medication but he does recommend medication. He has cleared her to go home but requests patient follow-up in 2 weeks at his office with seizure precautions and no driving for 6 months. Problem List: (1) Seizure ICD Codes: R56.9 - Unspecified convulsions Status: Acute Plan: First time seizure, witnessed tonic-clonic seizure. UDS + for marijuana - reported last use was 2 weeks ago No residual symptoms Imaging as below Electrolytes WNL EKG normal UA only showing 10 ketones Neurology consulted MRI wnl EEG showing "mildly abnormal electroencephalogram because of occasional intermixed high amplitude delta activity with questionable associated sharp discharge. No obvious lateralizing features. This finding is possibly an epileptiform abnormality." Telemetry wnl TSH WNL (2) Head trauma ICD Codes: S09.90XA - Unspecified injury of head, initial encounter Plan: Pain improved Reportedly hit head on vehicle immediately after the seizure started No lacerations noted Complaining of pain across forehead head CT negative for bleed/fracture Cervical spine CT negative, MRI wnl Received Toradol, Tylenol in the ED Headache resolved on 11/11 Tylenol, Motrin PRN for pain Zofran as needed for nausea (3) FEN Plan: F: no IVF at this time, PO hydration E: replete as needed N: Regular diet No DVT prophylaxis, early ambulation Breanna Beck MD Nov 12, 2017 09:23
[2017-11-12] MEDS ORDERED: IBUP-232 PO (09:37)
--- NOTE | 2017-11-12 09:37 | HHI.DCPOC ---
Discharge Care Plan Diagnosis: (1) Seizure (2) Head trauma Goals to Promote Your Health * To prevent worsening of your condition and complications * To maintain your health at the optimal level Directions to Meet Your Goals Take your medications as prescribed Follow your dietary instruction Follow activity as directed Keep your appointments as scheduled Take your immunizations and boosters as scheduled If your symptoms worsen call your PCP, if no PCP go to Urgent Care Center or Emergency Room Smoking is Dangerous to Your Health. Avoid second hand smoke Call the 24-hour hour crisis hotline for domestic abuse at Breanna Beck MD Nov 12, 2017 09:37
--- NOTE | 2017-11-12 09:44 | HHI.DS ---
Discharge Summary Admission Date Nov 10, 2017 at 18:06 Discharge Date: Nov 12, 2017 Admitting Diagnosis new onset siezure (1) Seizure Diagnosis: Principal Plan: First time seizure, witnessed tonic-clonic seizure. UDS + for marijuana - reported last use was 2 weeks ago No residual symptoms Imaging as below Electrolytes WNL EKG normal UA only showing 10 ketones Neurology consulted MRI wnl EEG showing "mildly abnormal electroencephalogram because of occasional intermixed high amplitude delta activity with questionable associated sharp discharge. No obvious lateralizing features. This finding is possibly an epileptiform abnormality." Telemetry wnl TSH WNL ICD Codes: R56.9 - Unspecified convulsions Status: Acute (2) Head trauma Diagnosis: Secondary Plan: Pain improved Reportedly hit head on vehicle immediately after the seizure started No lacerations noted Complaining of pain across forehead head CT negative for bleed/fracture Cervical spine CT negative, MRI wnl Received Toradol, Tylenol in the ED Headache resolved on 11/11 Tylenol, Motrin PRN for pain Zofran as needed for nausea ICD Codes: S09.90XA - Unspecified injury of head, initial encounter Consultants Neurology Dr. Calderón Procedures EEG 11/11/2017: Mildly abnormal electroencephalogram because of occasional intermixed high amplitude delta activity with questionable associated sharp discharge. No obvious lateralizing features. This finding is possibly an epileptiform abnormality. Clinical correlation. Brief History 22 yo F presents emergency department via [facility] after seizure that occurred just prior to arrival. 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 She states she woke up this morning with headache, nausea, "not feeling right." Patient does not remember the events of the actual seizure and is unable to characterize this seizure activity, she does not know how long she was out. She was told by coworkers that her eyes rolled back in her head and she had full body jerking. According to [facility], she was A+O 1 upon initial evaluation. Patient became A+O 3 shortly after their arrival. Initially she complained about an 8/10 headache with associated nausea, but this improved with Toradol, Zofran and Tylenol in ED. Her headaches located in the frontal aspect of her forehead. Denies urinary incontinence. Patient denies current fever, chills, chest pain, shortness breath, abdominal pain, vomiting, diarrhea. She denies any preceding infections that she knows of. States she last smoked marijuana 2 weeks ago. Denies any other illicit drug use. Says she does have a history of anemia and has not followed up with this. Denies chronic medical issues medication use. Since her last menstrual period was 2 weeks ago and lasted approximately 1 week with is unusual for her. States usually usually bleeds for entire month. Prior to this menstrual cycle she last had a period in June 2017. CBC/BMP: 11/11/17 0823 11/11/17 0823 Significant Findings Laboratory Tests Test 11/10/17 14:08 11/10/17 15:43 11/11/17 08:23 Hematocrit 32.9 % (35.0-46.0) 33.5 % (35.0-46.0) Mean Corpuscular Volume 79.6 FL (80.0-100.0) 78.9 FL (80.0-100.0) Red Cell Distribution Width 20.6 % (11.6-17.2) 20.2 % (11.6-17.2) Blood Urea Nitrogen 6 MG/DL (7-18) Alkaline Phosphatase 39 U/L (45-117) Aspartate Amino Transf (AST/SGOT) 12 U/L (15-37) Urine Ketones 10 mg/dL (NEG) Urine Cannabinoids Screen POS (NEG) Hemoglobin 11.1 GM/DL (11.6-15.3) Mean Corpuscular Hemoglobin 26.0 PG (27.0-34.0) Monocytes (%) (Auto) 8.2 % (0.0-8.0) Imaging Last Impressions Brain MRI 11/11/17 0000 Signed Impressions: Service Date/Time: Saturday, November 11, 2017 15:25 - CONCLUSION: Normal examination. Peter Vu MD Head CT 11/10/17 0000 Signed Impressions: Service Date/Time: Friday, November 10, 2017 15:45 - CONCLUSION: Normal examination. Peter Vu MD Chest X-Ray 11/10/17 0000 Signed Impressions: Service Date/Time: Friday, November 10, 2017 14:52 - CONCLUSION: No acute disease. Peter Vu MD Cervical Spine CT 11/10/17 0000 Signed Impressions: Service Date/Time: Friday, November 10, 2017 15:45 - CONCLUSION: No acute bony injury seen. Peter Vu MD PE at Discharge GEN: Well-developed, well-nourished patient. No acute distress. Resting comfortably in bed. SKIN: No rashes, ecchymoses or lesions. Warm and dry. CV: Regular rate and rhythm without obvious murmurs LUNGS: Clear to auscultation bilaterally. Normal respiratory effort. No wheezes , rales, rhonchi. GI: Soft, nondistended. Bowel sounds present. EXT: No edema. No calf tenderness. NEURO/PSYCH: Awake, alert. Appropriate insight and judgment. Normal speech. 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 Hospital Course 22 yo F with PMH of anemia presented to ED following first time seizure. She did hit her head after a fall when the seizure started, CT scan negative for bleed/fracture. Neurology consulted. EEG showing possible epileptiform activity , MRI normal. No seizures since [id number]-[id number] episode. Lamictal was ordered by neurology due to abnormal EEG but patient has refused the medication at this time. She requests discharge today 11/13 and this was cleared. She and her boyfriend are given seizure precaution discussion and handout and she is told that she has not to be able to drive for at least 6 months. She agrees with this and notes her boyfriend drives anyway. 11/13 @ 9:40am: Dr. Calderón reviewed case, noted abnormal EEG. Discussed that patient did not want to take medication but he does recommend medication. He has cleared her to go home but requests patient follow-up in 2 weeks at his office with seizure precautions and no driving for 6 months. Pt Condition on Discharge: Stable Discharge Disposition: Discharge Home Discharge Instructions DIET: Follow Instructions for: As Tolerated, No Restrictions Activities you can perform: Regular-No Restrictions, See Additionl Instruction Other Activity Instructions: No driving for six months. No work until cleared by . Follow up Referrals: Neurology - 1 Week with Federico Guajardo MD New Medications: Ibuprofen (Ibuprofen) 600 Mg Tab 600 MG PO Q6H PRN for pain 1-10, #20 TAB Discontinued Medications: Fluconazole (Diflucan) 150 Mg Tab 150 MG PO ONCE for Infection, #1 TAB 0 Refills Metronidazole (Flagyl) 500 Mg Tab 500 MG PO BID for Infection, #14 TAB 0 Refills Additional Information Patient to follow-up with Dr. Camacho in 1-2 weeks. Patient made aware of this and seizure precautions with no driving for 6 months at least. Work release given until cleared by Breanna Hurst MD Nov 12, 2017 09:44
== END 2017-11-12 10:37 | disposition home or self-care (01) | DRG 101 ==
LOC: NEPE 13:26 → NEDH 18:06 → N05A 20:33
PROVIDERS: ADMIT Family Medicine; ATTEND Family Medicine
DX: R56.9 Unspecified convulsions (principal); S09.90XA Unspecified injury of head, initial encounter; F17.210 Nicotine dependence, cigarettes, uncomplicated; W22.09XA Striking against other stationary object, initial encounter
CPT/HCPCS: 70450; 70553; 71045; 72125; 80048; 80053; 80307; 81001; 83690; 83735; 84443; 84703; 85025; 93005; 95819; 96361; 96372; 96374; A9579; J1885; J2405; J7030